=== PATIENT | male | born 1960 | race Caucasian/White ===

== ENCOUNTER 2021-06-21 15:07 | Emergency (ER) | payer OTHER, SELFPAY ==
[2021-06-21 16:20] LABS: Absolute Lymphocytes (CBC) 0.7 K/uL (0.7-4.9); Basophils % 0.7 % (0-1.3); Hematocrit 37.4 % (39.6-49.0); Lymphocytes % 9.9 % (15.3-44.8); MPV 7.2 fL (7.6-11.3); RBC Red Blood Cell Count 3.71 M/uL (4.33-5.43)
[2021-06-21 16:21] LABS: Protime INR 1.03
--- NOTE | 2021-06-21 16:39 | RAD REPORT ---
EXAM DESCRIPTION: CT - Head C Spine Siddhartha Edmondson - 06/21/2021 4:26 pm CLINICAL HISTORY: Trauma, head and neck injury. Chest, abdomen and pelvis pain. fall injury, syncope;Pain COMPARISON: No comparisons TECHNIQUE: CT head without contrast. CT cervical spine without contrast with coronal and sagittal reformatted images. CT chest, abdomen and pelvis with IV contrast (approximately 100 mL nonionic IV contrast) with ferraro l and sagittal reformatted images of the spine. All CT scans are performed using dose optimization technique as appropriate and may include automated exposure control or mA/KV adjustment according to patient size. FINDINGS: CT HEAD WITHOUT CONTRAST: No intracranial hemorrhage, hydrocephalus or extra-axial fluid collection. No areas of brain edema o r midline shift. The paranasal sinuses and mastoids are clear. The calvarium is intact. CT CERVICAL SPINE WITHOUT CONTRAST: No fracture or subluxation. The prevertebral soft tissues are normal in thickness.Multilevel cervica l spondylosis with varying degrees of neural foraminal narrowing. Mild central spinal stenosis is not ed at the C6-7 level. There is moderate neural foraminal narrowing at this level as well. CT CHEST, ABDOMEN, PELVIS WITH CONTRAST: The lungs are clear.No pneumothorax or pericardial/pleural fluid. Scattered coronary artery calcifica tions. No evidence of intra-abdominal visceral injury, free fluid or free air. Atherosclerosis Acute left tenth and eleventh posterior rib fractures which are only minimally displaced. There is andres bjacent chest wall hematoma. L3 through S1 fusion. Multilevel degenerative changes are present in the spine. Bone graft harvest site in the left iliac bone. IMPRESSION: 1. Left posterior tenth and eleventh rib fractures with small subjacent chest wall hemat reinaldo. No pneumothorax. 2. No acute intracranial abnormality. 3. No acute fracture of cervical spine. 4. No acute intra-abdominal abnormality.
[2021-06-21 17:03] LABS: ALT/SGPT 66 U/L (12-78); AST/SGOT 83 U/L (15-37); Alkaline Phosphatase 115 U/L (45-117); BUN Blood Urea Nitrogen 4 mg/dL (7-18); Bicarbonate 21 mmol/L (21-32); Bilirubin Direct 0.2 mg/dL (0-0.2); Bilirubin Total 0.5 mg/dL (0.2-1.0); Glucose Level 94 mg/dL (74-106); Magnesium 1.5 mg/dL (1.8-2.4); NT PRO-BNP 278 pg/mL (<125); Potassium 3.8 mmol/L (3.5-5.1); Sodium Level 129 mmol/L (136-145); Troponin (Emerg Dept Use Only) < 0.02 ng/mL (0.0-0.045)
--- NOTE | 2021-06-21 17:13 | RAD REPORT ---
EXAM DESCRIPTION: RAD - Chest Single View - 06/21/2021 4:44 pm CLINICAL HISTORY: syncope COMPARISON: No comparisons FINDINGS: Lines: None. Lungs: No evidence of edema or pneumonia. Pleural: No significant pleural effusions or pneumothorax. Cardiac: The heart size is within normal limits. Bones: No acute fractures. Other: IMPRESSION: No acute cardiopulmonary disease.
--- NOTE | 2021-06-21 17:13 | RAD REPORT ---
EXAM DESCRIPTION: RAD - Hand Left 3 View - 06/21/2021 4:44 pm CLINICAL HISTORY: PAIN COMPARISON: No comparisons FINDINGS: Comminuted fracture of the second digit proximal phalanx with intra-articular extension. T he fracture is centered primarily at the metaphysis however there is a longitudinal component which e xtends to the MCP joint. There is slight radial angulation Radiopaque foreign body within the dorsal soft tissues of the hand. This is at the level of the fourth metacarpal. Moderate degenerate changes are present at the base of the thumb. IMPRESSION: Comminuted fracture involving the proximal aspect of the second proximal phalanx with in tra-articular extension.
[2021-06-21] MEDS ORDERED: LIDOCAINE 1% W/EPI 1:100,000 MDV 20 ML VIAL ONE (17:14)
--- NOTE | 2021-06-21 17:38 | ER ---
Nurse's Notes [facility] Name: Steve Trent Age: 60 yrs Sex: Male : 1960 Arrival Date: 06/21/2021 Time: 15:08 Bed 14 Private MD: Diagnosis: Syncope;Displaced fracture of proximal phalanx of left index finger, initial encounter for closed fracture;Multiple fractures of ribs, left side;Laceration without foreign body of scalp;Hypomagnesemia;Hyponatremia Presentation: 06/21 15:20 Chief complaint: Patient states: i was working on a house and the last thing i remember tw2 was carrying a box of nails. and fell. i dont know what i hit or what happened. Coronavirus screen: At this time, the client does not indicate any symptoms associated with coronavirus-19. Ebola Screen: Patient denies travel to an Ebola-affected area in the 21 days before illness onset. Initial Sepsis Screen: Does the patient meet any 2 criteria? No. Patient's initial sepsis screen is negative. Does the patient have a suspected source of infection? No. Patient's initial sepsis screen is negative. Risk Assessment: Do you want to hurt yourself or someone else? Patient reports no desire to harm self or others. Onset of symptoms was June 21, 2021. 15:20 Method Of Arrival: Wheelchair 2 15:20 Acuity: TASH 3 tw2 16:14 Mechanism of Injury: Fall. [facility] 16:15 Care prior to arrival: None. [facility] 16:16 Trauma event details: Injury occurred: work Injury occurred: June 21, 2021. [facility] Triage Assessment: 15:18 General: Appears uncomfortable, Behavior is calm, cooperative, appropriate for age. tw2 Pain: Complains of pain in LEFT ribs, left eye. EENT: swelling noted to LEFT eye and laceration noted to left eye. 15:24 General: Appears unkempt, pt has multiple places of dried blood noted to left side of tw2 face and left arm. Historical: - Allergies: 15:18 No Known Allergies; tw2 - Home Meds: 15:18 None [Active]; tw2 - PMHx: 15:18 None; tw2 - PSHx: 15:18 back surgery; tw2 - Immunization history:: Adult Immunizations Client reports receiving the 2nd dose of the Covid vaccine, Last tetanus immunization: < 5 years ago. - Social history:: Smoking status: Patient reports the use of cigarette tobacco products, smokes one pack cigarettes per day. Patient uses alcohol, claims drinking about a 6 pack/day. - Immunization history: Last tetanus immunization: > 10 years ago unknown. Screenin:08 Abuse screen: Denies threats or abuse. Tuberculosis screening: No symptoms or risk [facility] factors identified. 16:14 Nutritional screening: No deficits noted. Fall Risk IV access (20 points). [facility] Primary Survey: 16:08 NO uncontrolled hemorrhage observed. A: The patient only responds to painful stimuli. [facility] Airway: patent. Breathing/Chest: Respiratory pattern: regular. Circulation: Cardiac rhythm: sinus rhythm. Disability Alert. Exposure/Environment: Obvious injury(ies) are noted at this time: abve left eye laceration multiple skin tears on arms and legs. 16:14 Reassessment Breathing/Chest Respiratory pattern Regular Circulation Heart rhythm Sinus [facility] rhythm. Secondary Survey: 16:08 HEENT: Head Other left eye lac. Gastrointestinal: No deficits noted. Abdomen is soft. kh : No deficits noted. Musculoskeletal: No deficits noted. Injury Description: Abrasion sustained to right arm, left arm, right leg and left leg. Assessment: 16:08 Reassessment: Patient appears in no apparent distress at this time. No changes from [facility] previously documented assessment. Patient and/or family updated on plan of care and expected duration. Pain level reassessed. Patient is alert, oriented x 3, equal unlabored respirations, skin warm/dry/pink. 16:08 General: Appears in no apparent distress. Behavior is calm, cooperative. Pain: [facility] Complains of pain in above left eye left side rib pain Pain does not radiate. Pain currently is 8 out of 10 on a pain scale. Quality of pain is described as. Vital Signs: 15:20 BP 101 / 57; Pulse 84; Resp 18; Temp 98.1(O); Pulse Ox 98% on R/A; Weight 86.18 kg (R); tw2 17:30 BP 110 / 63; Pulse 77; Resp 18; Temp 98.0(TE); Pulse Ox 99% on R/A; [facility] [place] Coma Score: 16:08 Eye Response: spontaneous(4). Verbal Response: oriented(5). Motor Response: obeys kh1 commands(6). Total: 15. Trauma Score (Adult): 16:08 Eye Response: spontaneous(1); Verbal Response: oriented(1); Motor Response: obeys kh1 commands(2); Systolic BP: > 89 mm Hg(4); Respiratory Rate: 10 to 29 per min(4); Hailey Score: 15; Trauma Score: 12 ED Course: 15:08 Patient arrived in ED. as 15:22 Triage completed. tw2 15:23 Arm band placed on. tw2 15:34 Buck Dan PA is PHCP. jr8 15:34 Constantine Oliveira MD is Attending Physician. jr8 15:42 Amanda Barnes is Primary Nurse. kh1 16:08 Patient has correct armband on for positive identification. Bed in low position. Call kh1 light in reach. Side rails up X2. Adult w/ patient. 16:08 Patient maintains SpO2 saturation greater than 95% on room air. kh1 16:13 Inserted saline lock: 20 gauge in left upper arm, using aseptic technique. Blood iw collected. 16:13 No provider procedures requiring assistance completed. kh1 16:26 CT Traumagram (Head C Spine CAP W Con) In Process Unspecified. EDMS 16:39 Basic Metabolic Panel Sent. kh1 16:39 LFT's Sent. kh1 16:39 Magnesium Sent. kh1 16:39 NT PRO-BNP Sent. kh1 16:40 Troponin (emerg Dept Use Only) Sent. kh1 16:44 XRAY Chest (1 view) In Process Unspecified. EDMS 16:44 XRAY Hand LEFT 3 View In Process Unspecified. EDMS 17:36 Armand Yun MD is Referral Physician. jr8 17:36 Fransisco Harris MD is Referral Physician. jr8 18:05 Orthoglass splint: Volar splint applied on left arm. em1 18:40 IV discontinued, intact, bleeding controlled, No redness/swelling at site. Pressure kh1 dressing applied. Administered Medications: No medications were administered Intake: 18:41 PO: 0ml; IV: 150ml (IV Fluid); Total: 150ml. kh1 Outcome: 17:38 Discharge ordered by . jr8 18:40 Discharged to home via wheelchair. kh1 18:40 Condition: stable 18:40 Discharge instructions given to patient. 18:41 Patient's length of stay was not longer than 2 hours. kh1 18:44 Patient left the ED. 1 Signatures: Dispatcher [employer] Fely Mercado Irene, RN Lorenzo Duncan Josh, PA PA jr8 Trinidad Crawford RN RN tw2 Amanda Barnes 1
--- NOTE | 2021-06-21 17:39 | EDPHYS ---
Physician Documentation [facility] Name: Steve Trent Age: 60 yrs Sex: Male : 1960 Arrival Date: 06/21/2021 Time: 15:08 Bed 14 Private MD: ED Physician Constantine Oliveira HPI: 06/21 16:05 This 60 yrs old Male presents to ER via Wheelchair with complaints of Fall jr8 Injury, Rib Pain, Laceration. 16:05 Onset: The symptoms/episode began/occurred acutely, today. This is a 60-year-old male jr8 patient that presented to the emergency room for further evaluation after having what appears to be a syncopal episode. Patient stated that he was carrying nails in a house and the next thing that he remembers he woke up on the floor and pain. Patient had obvious laceration to the left head with rib pain and another small superficial skin avulsions to his legs and arms. Patient denies ever having this happen in the past. Patient currently without any past medical history and denies any current medications. Patient denied any preceding symptoms. Currently complains of head pain, left-sided rib pain, left hand pain.. Historical: - Allergies: 15:18 No Known Allergies; tw2 - Home Meds: 15:18 None [Active]; tw2 - PMHx: 15:18 None; tw2 - PSHx: 15:18 back surgery; tw2 - Immunization history:: Adult Immunizations Client reports receiving the 2nd dose of the Covid vaccine, Last tetanus immunization: < 5 years ago. - Social history:: Smoking status: Patient reports the use of cigarette tobacco products, smokes one pack cigarettes per day. Patient uses alcohol, claims drinking about a 6 pack/day. - Immunization history: Last tetanus immunization: > 10 years ago unknown. ROS: 16:07 Eyes: Negative for injury, pain, redness, and discharge, ENT: Negative for injury, jr8 pain, and discharge, Neck: Negative for injury, pain, and swelling. 16:07 Respiratory: Negative for shortness of breath, cough, wheezing, and pleuritic chest pain, Abdomen/GI: Negative for abdominal pain, nausea, vomiting, diarrhea, and constipation, Back: Negative for injury and pain. 16:07 Cardiovascular: Positive for chest pain, with movement. 16:07 MS/extremity: Positive for pain, tenderness, of the left hand. 16:07 Skin: Positive for avulsion, laceration(s). 16:07 Neuro: Positive for syncope. Exam: 16:10 Eyes: Pupils equal round and reactive to light, extra-ocular motions intact. Lids and jr8 lashes normal. Conjunctiva and sclera are non-icteric and not injected. Cornea within normal limits. Periorbital areas with no swelling, redness, or edema. ENT: Nares patent. No nasal discharge, no septal abnormalities noted. Tympanic membranes are normal and external auditory canals are clear. Oropharynx with no redness, swelling, or masses, exudates, or evidence of obstruction, uvula midline. Mucous membranes moist. Neck: Trachea midline, no thyromegaly or masses palpated, and no cervical lymphadenopathy. Supple, full range of motion without nuchal rigidity, or vertebral point tenderness. No Meningismus. 16:10 Cardiovascular: Regular rate and rhythm with a normal S1 and S2. No gallops, murmurs, or rubs. Normal PMI, no JVD. No pulse deficits. Respiratory: Lungs have equal breath sounds bilaterally, clear to auscultation and percussion. No rales, rhonchi or wheezes noted. No increased work of breathing, no retractions or nasal flaring. Abdomen/GI: Soft, non-tender, with normal bowel sounds. No distension or tympany. No guarding or rebound. No evidence of tenderness throughout. Back: No spinal tenderness. No costovertebral tenderness. Full range of motion. Neuro: Awake and alert, GCS 15, oriented to person, place, time, and situation. Cranial nerves II-XII grossly intact. Motor strength 5/5 in all extremities. Sensory grossly intact. Cerebellar exam normal. 16:10 Head/face: Noted is a laceration(s), that is deep, 7.5 cm(s), of the Left side of forehead. 16:10 Chest/axilla: Inspection: normal, Palpation: tenderness, that is moderate, of the left lateral anterior chest and left lateral posterior chest. 16:10 Musculoskeletal/extremity: Extremities: grossly normal except: noted in the left hand: Patient has moderate tenderness to the second digit of the left hand. Mild swelling noted. No external trauma to that finger., ROM: intact in all extremities, full active range of motion, full passive range of motion, limited active range of motion due to pain, limited passive range of motion due to pain, Circulation is intact in all extremities. Sensation intact. 16:10 Skin: Various small superficial skin avulsions noted to the right foot and left arm that are new. Patient has other smaller older avulsions from previous work injuries to the left leg and right arm and hand. Vital Signs: 15:20 BP 101 / 57; Pulse 84; Resp 18; Temp 98.1(O); Pulse Ox 98% on R/A; Weight 86.18 kg (R); tw2 17:30 BP 110 / 63; Pulse 77; Resp 18; Temp 98.0(TE); Pulse Ox 99% on R/A; kh1 [place] Coma Score: 16:08 Eye Response: spontaneous(4). Verbal Response: oriented(5). Motor Response: obeys kh1 commands(6). Total: 15. Trauma Score (Adult): 16:08 Eye Response: spontaneous(1); Verbal Response: oriented(1); Motor Response: obeys kh1 commands(2); Systolic BP: > 89 mm Hg(4); Respiratory Rate: 10 to 29 per min(4); Hailey Score: 15; Trauma Score: 12 Procedures: 17:35 Splinting: Splint applied to left hand using Orthoglass splint, applied by tech. 8 Examined by me, post splint application: neurovascular intact, 2+ distal pulses palpable, brisk capillary refill noted, Patient tolerated well. Laceration: 17:10 Wound Repair of 7.5cm ( 3.0in ) subcutaneous laceration to left side of forehead. jr8 Irregularly shaped.. Skin/tissue flap noted.. Distal neuro/vascular/tendon intact. Anesthesia: Local anesthetic administered with 8 mls of 1% lidocaine w/ Epi. Wound prep: Extensive cleansing with betadine, Wound irrigation with saline, Wound explored extensively. Skin closed with 9 4-0 Prolene using interrupted sutures and sterile technique. Patient tolerated well. MDM: 15:34 Patient medically screened. jr8 17:34 Data reviewed: vital signs, nurses notes, lab test result(s), EKG, radiologic studies, jr8 CT scan, plain films. Data interpreted: Pulse oximetry: on room air is 98 %. Interpretation: normal. Counseling: I had a detailed discussion with the patient and/or guardian regarding: the historical points, exam findings, and any diagnostic results supporting the discharge/admit diagnosis, lab results, radiology results, the need for outpatient follow up, a problem manager, a family practitioner, a hand specialist, to return to the emergency department if symptoms worsen or persist or if there are any questions or concerns that arise at home. ED course: Patient is remained hemodynamically stable while in emergency room. Patient has left posterior 10th and 11th rib fractures and a left second digit finger fracture that he will follow up with and 4. Otherwise had mild electrolyte dysfunction which has been replaced. Patient stated that he does drink about 6 beers a night most nights of the week. This could be contributed to the hyponatremia and hypomagnesemia with slight AST ALT ratio. Recommended cessation of his drinking habits and to follow-up with cardiology to start with the syncope along with family medicine. Patient knows to come back if he were to worsen at any point in time. Otherwise patient and good with plan at this time.. 06/21 15:42 Order name: Basic Metabolic Panel; Complete Time: 17:12 06/21 15:42 Order name: CBC with Diff; Complete Time: 16:34 06/21 15:42 Order name: LFT's; Complete Time: 17:06/21 15:42 Order name: Magnesium; Complete Time: 17:06/21 15:42 Order name: NT PRO-BNP; Complete Time: 17:12 06/21 15:42 Order name: PT-INR; Complete Time: 16:34 06/21 15:42 Order name: Troponin (emerg Dept Use Only); Complete Time: 17:12 06/21 15:42 Order name: XRAY Chest (1 view); Complete Time: 17:26 06/21 15:42 Order name: EKG; Complete Time: 15:43 06/21 15:42 Order name: Cardiac monitoring; Complete Time: 16:40 06/21 15:42 Order name: CT Traumagram (Head C Spine CAP W Con); Complete Time: 16:41 06/21 16:07 Order name: XRAY Hand LEFT 3 View; Complete Time: 17:06/21 15:42 Order name: EKG - Nurse/Tech; Complete Time: 17:21 8 06/21 15:42 Order name: IV Saline Lock; Complete Time: 16:15 8 06/21 15:42 Order name: Labs collected and sent; Complete Time: 16:15 8 06/21 15:42 Order name: O2 Per Protocol; Complete Time: 16:15 8 06/21 15:42 Order name: O2 Sat Monitoring; Complete Time: 16:15 8 06/21 17:35 Order name: Volar Wrist Splint; Complete Time: 18:05 jr8 Administered Medications: No medications were administered Disposition: 06/22 07:05 Co-signature as Attending Physician, Constantine Oliveira MD I agree with the assessment and sp3 plan of care. Disposition Summary: 06/21/21 17:38 Discharge Ordered Location: Home jr Problem: new jr8 Symptoms: have improved jr8 Condition: Stable jr8 Diagnosis - Syncope jr8 - Displaced fracture of proximal phalanx of left index finger, initial encounter for jr8 closed fracture - Multiple fractures of ribs, left side jr8 - Laceration without foreign body of scalp jr8 - Hypomagnesemia jr8 - Hyponatremia jr8 Followup: jr8 - With: Armand Yun MD - When: 5 - 6 days - Reason: Followup: jr8 - With: Fransisco Harris MD - When: 5 - 6 days - Reason: Recheck today's complaints, Continuance of care, Re-evaluation by your physician Discharge Instructions: - Discharge Summary Sheet jr8 - Finger Fracture, Adult jr8 - Hypomagnesemia jr8 - Facial Laceration jr8 - Rib Fracture jr8 - Syncope jr8 Forms: - Medication Reconciliation Form jr8 - Thank You Letter jr8 - Antibiotic Education jr8 - Prescription Opioid Use jr8 Prescriptions: - Cephalexin 500 mg Oral Capsule - take 1 capsule by ORAL route every 8 hours for 7 days; 21 capsule; Refills: 0, jr8 Product Selection Permitted - Ibuprofen 800 mg Oral Tablet - take 1 tablet by ORAL route every 12 hours As needed take with food; 20 tablet; jr8 Refills: 0, Product Selection Permitted Signatures: Dispatcher [employer] EDVA Buck Dan PA PA jr8 Trinidad Crawford RN RN tw2 Constantine Oliveira MD MD sp3 Amanda Barnes 1 Corrections: (The following items were deleted from the chart) 06/21 17:12 16:10 Head/face: Noted is a laceration(s), that is deep, that is linear, 3.5 cm(s), of jr8 the Left side of forehead, jr8
[2021-06-21] MEDS ORDERED: Magnesium Sulfate 2gm IVPB 2 G/50 ML BAG IV ONE (18:03)
[2021-06-21] MEDS ORDERED: NA CHLORIDE 0.9% 1,000 ML ONE (18:03)
[2021-06-21 18:53] VITALS: BP 110/63; TEMP 98; O2SAT 99
== END 2021-06-21 18:44 | disposition home or self-care (01) ==
LOC: ER 15:07
PROC: 0PSVXZZ Reposition Left Finger Phalanx, External Approach (ICD-10-PCS; principal; 2021-06-21)
PROC: 0JQ10ZZ Repair Face Subcutaneous Tissue and Fascia, Open Approach (ICD-10-PCS; 2021-06-21)
DX: S22.42XA Multiple fractures of ribs, left side, initial encounter for closed fracture (principal); S62.611A Displaced fracture of proximal phalanx of left index finger, initial encounter for closed fracture; S01.01XA Laceration without foreign body of scalp, initial encounter; R55 Syncope and collapse; E83.42 Hypomagnesemia; E87.1 Hypo-osmolality and hyponatremia; F17.210 Nicotine dependence, cigarettes, uncomplicated; W18.39XA Other fall on same level, initial encounter; Y93.89 Activity, other specified; Y92.019 Unspecified place in single-family (private) house as the place of occurrence of the external cause
CPT/HCPCS: 36415; 70450; 71045; 71260; 72125; 74177; 80048; 80076; 82565; 83735; 83880; 84484; 85025; 85610; 93005; 99284; J3475; J7030; Q9967

== ENCOUNTER 2022-03-29 09:08 | Emergency (ER) | payer SELFPAY ==
[2022-03-29] MEDS ORDERED: MORPHINE 4 MG/ML SYR ONE ×3 (09:20→10:26)
[2022-03-29] MEDS ORDERED: NA CHLORIDE 0.9% 4,000 ML ONE (09:21)
[2022-03-29] MEDS ORDERED: CEFAZOLIN SODIUM 1 GM/VIAL ONE (09:33)
[2022-03-29] MEDS ORDERED: NA CHLORIDE 0.9% 50 ML ONE (09:34)
[2022-03-29] MEDS ORDERED: TETANUS & DIPHTHERIA TOX,ADULT 0.5 ML VIAL ONE (09:34)
[2022-03-29 09:43] LABS: Absolute Lymphocytes (CBC) 0.9 K/uL (0.7-4.9); Hematocrit 38.1 % (39.6-49.0); Lymphocytes % 15.3 % (15.3-44.8); MPV 6.8 fL (7.6-11.3); RBC Red Blood Cell Count 3.94 M/uL (4.33-5.43)
--- NOTE | 2022-03-29 09:50 | ER ---
Nurse's Notes [facility] Name: Steve Trent Age: 61 yrs Sex: Male : 1960 Arrival Date: 03/29/2022 Time: 09:12 Bed 4 Private MD: Diagnosis: Open Calcaneal fracture Presentation: 03/29 09:10 Chief complaint: EMS states: pt fell approx 12-15 feet in elevator , christopher open ankle iw fractures noted , pt alert and oriented , bleeding to christopher ankles, dressing in place, Dr. Kaur at bedside for assessment. 09:14 Acuity: TASH 2 iw 09:14 Method Of Arrival: EMS: [facility] iw 09:15 Mechanism of Injury: Fall approximately 12 feet. Trauma event details: Injury occurred iw in the [facility], Injury occurred: Injury occurred: March 29, 2022. 09:16 Care prior to arrival: Injury dressed. iw 09:17 Coronavirus screen: At this time, the client does not indicate any symptoms associated iw with coronavirus-19. Ebola Screen: Patient negative for fever greater than or equal to 101.5 degrees Fahrenheit, and additional compatible Ebola Virus Disease symptoms Patient denies exposure to infectious person. Patient denies travel to an Ebola-affected area in the 21 days before illness onset. No symptoms or risks identified at this time. Initial Sepsis Screen: Does the patient meet any 2 criteria? No. Patient's initial sepsis screen is negative. Does the patient have a suspected source of infection? No. Patient's initial sepsis screen is negative. Risk Assessment: Do you want to hurt yourself or someone else? Patient reports no desire to harm self or others. Onset of symptoms was March 29, 2022. Trauma Activation: Alert Physician: ED Physician; Name: Dr. Kaur; Notified At: 09:05; Arrived At: 09:05 Physician: General Surgeon; Name: N/A; Notified At: 09:05; Arrived At: N/A Physician: Radiology; Name: [place]; Notified At: 09:05; Arrived At: 09:05 Physician: Respiratory; Name: N/A; Notified At: 09:05; Arrived At: N/A Physician: Buddy; Name: N/A; Notified At: 09:05; Arrived At: N/A Historical: - Allergies: 09:17 No Known Allergies; iw - Home Meds: 09:17 None [Active]; iw - PMHx: 09:17 None; iw - PSHx: 09:17 back surgery; iw - Immunization history:: Last tetanus immunization: unknown. - Social history:: Smoking status: Patient reports the use of cigarette tobacco products, Patient uses alcohol, 2 beers today watching the sun rise. - Immunization history: Last tetanus immunization: - up to date. - Family history:: not pertinent. Screenin:20 Abuse screen: Denies threats or abuse. Denies injuries from another. Tuberculosis iw screening: No symptoms or risk factors identified. 09:22 Nutritional screening: No deficits noted. Fall Risk IV access (20 points). jl7 Primary Survey: 09:10 NO uncontrolled hemorrhage observed. A: The client is alert. Airway: patent. iw Breathing/Chest: Respiratory effort: spontaneous, Breath sounds: clear. Circulation: Skin color: pink, Skin temperature: warm. Disability Client is alert. Exposure/Environment: All clothing and personal items were removed. 09:48 Reassessment Alertness and Airway: Awake and alert. The airway is patent. Breathing: jl7 Spontaneous respiratory effort, equal unlabored respirations, breath sounds clear bilaterally, regular pattern with symmetrical chest rise and fall. Circulation: No external hemorrhage noted. Regular and strong central pulse, skin warm/dry/normal color. Disability: Alert. Secondary Survey: 09:53 Musculoskeletal: Bony deformity noted of medial aspect of right heel and medial aspect jl7 of left heel. Assessment: 09:22 Reassessment: Pt to CT via stretcher. jl7 09:26 General: Appears uncomfortable, well groomed, well nourished, Behavior is cooperative, jh6 Smells of alcohol. Pain: Complains of pain in right leg, left lateral ankle, lateral aspect of left foot, left Achilles, left heel, left medial ankle, medial aspect of left foot, left knee, anterior aspect of left ankle and dorsum of left foot Pain radiates to back of neck, posterior chest, buttocks and back Pain currently is 9 out of 10 on a pain scale. Quality of pain is described as aching, sharp, shooting, throbbing, gnawing, numb, Pain began suddenly, Is continuous, Aggravated by increased activity, repositioning. Neuro: No deficits noted. Level of Consciousness is awake, alert, obeys commands, Oriented to person, place, time, situation, [employer] are equal bilaterally Full function in left in right arm(s) Speech is normal, Denies blurred vision. EENT: No deficits noted. Cardiovascular: No deficits noted. Capillary refill < 3 seconds JVD is absent Patient's skin is warm and dry. Rhythm is sinus rhythm. Respiratory: No deficits noted. Airway is patent Trachea midline Respiratory effort is even, unlabored, Respiratory pattern is regular, Breath sounds are clear bilaterally. GI: No deficits noted. Abdomen is flat, non-distended, Last meal was March 29, 2022. Bowel sounds present X 4 quads. Abd is soft and non tender X 4 quads. : No deficits noted. Derm: Wound noted left lateral ankle, lateral aspect of left foot, left Achilles, left heel, left medial ankle, medial aspect of left foot, anterior aspect of left ankle and dorsum of left foot Wound is open distal tib/fib fx of l leg with swelling to rt heal and ankle Bruising that is on left lateral ankle, lateral aspect of left foot, left Achilles, left heel, left medial ankle, medial aspect of left foot, anterior aspect of left ankle and dorsum of left foot. Musculoskeletal: Capillary refill is > 3 seconds, in left foot. Injury Description: Crush injury sustained to left lateral ankle, left Achilles, left medial ankle and anterior aspect of left ankle is macerated Deformity sustained to right leg, left lateral ankle, left Achilles, left medial ankle and anterior aspect of left ankle Laceration sustained to left lateral ankle, left Achilles, left medial ankle and anterior aspect of left ankle Puncture. 09:51 General: Appears in no apparent distress. uncomfortable, Behavior is calm, cooperative, jl7 appropriate for age. Pain: Complains of pain in right foot and left foot. Neuro: Level of Consciousness is awake, alert, obeys commands, Oriented to person, place, time, situation, Intact. Cardiovascular: Patient's skin is warm and dry. Cardiovascular: Denies chest pain. Respiratory: Airway is patent Respiratory effort is even, unlabored, Respiratory pattern is regular, symmetrical, Denies shortness of breath. GI: Patient currently denies abdominal pain, diarrhea, nausea, vomiting. Derm: Skin is pink, warm \T\ dry. 10:08 Reassessment: Patient is alert, oriented x 3, equal unlabored respirations, skin jl7 warm/dry/pink. Report called to receiving facility, at bedside, awaiting EMS transport. Vital Signs: 09:10 BP 160 / 93; Pulse 69; Resp 19; Temp 97.0; Pulse Ox 99% on R/A; iw 09:23 BP 168 / 89; Pulse 71; Resp 16; Temp 98.0; Pulse Ox 100% on R/A; iw 09:49 BP 160 / 73; Pulse 72; Resp 15; Pulse Ox 99% ; Weight 86.18 kg; Height 5 ft. 10 in. jl7 (177.80 cm); 10:31 BP 156 / 76; Pulse 79; Resp 16; Pulse Ox 99% ; Pain 7/10; jh6 09:49 Body Mass Index 27.26 (86.18 kg, 177.80 cm) jl7 [place] Coma Score: 09:10 Eye Response: spontaneous(4). Verbal Response: oriented(5). Motor Response: obeys iw commands(6). Total: 15. 09:49 Eye Response: spontaneous(4). Verbal Response: oriented(5). Motor Response: obeys jl7 commands(6). Total: 15. Trauma Score (Adult): 09:10 Eye Response: spontaneous(1); Verbal Response: oriented(1); Motor Response: obeys iw commands(2); Systolic BP: > 89 mm Hg(4); Respiratory Rate: 10 to 29 per min(4); [place] Score: 15; Trauma Score: 12 09:23 Eye Response: spontaneous(1); Verbal Response: oriented(1); Motor Response: obeys iw commands(2); Systolic BP: > 89 mm Hg(4); Respiratory Rate: 10 to 29 per min(4); [place] Score: 15; Trauma Score: 12 ED Course: 09:10 Inserted saline lock: 20 gauge in right forearm, using aseptic technique. Blood jl7 collected. 09:10 Inserted saline lock: 18 gauge in left hand, using aseptic technique. jh6 09:12 Patient arrived in ED. ms3 09:12 Gonzales Kaur DO is Attending Physician. ms3 09:14 Triage completed. iw 09:15 Patient maintains SpO2 saturation greater than 95% on room air. Thermoregulation: warm jl7 blanket given to patient. 09:15 Initial lab(s) drawn, by ED staff, sent to lab. T\T\S collected, blood band applied to jl7 patient. 09:18 Arm band placed on. iw 09:22 Patient has correct armband on for positive identification. Client placed on continuous jl7 cardiac and pulse oximetry monitoring. NIBP monitoring applied. Warm blanket given. 09:33 CT Traumagram (Head C Spine CAP W Con) In Process Unspecified. EDMS 09:34 Bj Garza, AISHA is Primary Nurse. jl7 09:53 Dressings: 4X4s X 4; right foot and left foot. Irrigation of bilateral heel/ankle open jl7 fractures irrigated with normal saline Patient tolerated well. 09:55 Ankle Left 3 View XRAY In Process Unspecified. EDMS 09:55 Ankle Right 3 View XRAY In Process Unspecified. EDMS 10:02 Orthoglass splint: Posterior short lleg splint applied on bilateral legs. jl7 10:08 No provider procedures requiring assistance completed. Patient transferred, IV remains jl7 in place. intact, No redness/swelling at site. Administered Medications: 09:20 Drug: morphine 4 mg Route: IVP; Infused Over: 4 mins; Site: right forearm; jl7 10:33 Follow up: Response: No adverse reaction; Pain is unchanged, physician notified [facility] 09:47 Not Given (tetanus up tp datee): ADAcel 0.5 ml IM once; indicated for adults and jl7 teenagers 11 to 64 years of age 09:57 Drug: morphine 4 mg Route: IVP; Infused Over: 4 mins; Site: left hand; jl7 10:32 Follow up: Response: No adverse reaction; Pain is unchanged, physician notified [facility] 09:58 Drug: Ancef (cefazolin) 1 grams Route: IVPB; Site: right forearm; jl7 10:28 Follow up: IV Status: Completed infusion jh6 10:25 Drug: morphine 4 mg Route: IVP; Infused Over: 4 mins; Site: left hand; 6 10:33 Follow up: Response: Pain is unchanged, physician notified 6 Medication: 09:57 VIS not applicable for this client. jl7 Outcome: 09:50 ER care complete, transfer ordered by ms3 10:30 Transferred by ground EMS to other acute care facility: [facility]. 6 10:30 Condition: stable 10:30 Instructed on the need for transfer. 10:45 Patient left the ED. jh6 Signatures: Dispatcher [employer] EDLeydi Gutierrez RN RN Bj Garza RN RN jl7 Gonzales Kaur DO DO ms3 Ivania Miramontes, RN RN 6 Corrections: (The following items were deleted from the chart) 09:15 09:14 Acuity: TASH 3 [facility] 09:16 09:15 Trauma Activation: Alert [facility] 09:48 09:47 Immunization history Last tetanus immunization: jl7 7 09:59 09:10 Inserted saline lock: 20 gauge in right antecubital area, using aseptic jl7 technique. Blood collected. jh
--- NOTE | 2022-03-29 09:50 | EDPHYS ---
Physician Documentation [facility] Name: Steve Trent Age: 61 yrs Sex: Male : 1960 Arrival Date: 03/29/2022 Time: 09:12 Bed 4 Private MD: ED Physician Gonzales Kaur HPI: 03/29 09:27 This 61 yrs old Male presents to ER via EMS with complaints of Fall Injury. ms3 09:27 Details of fall: The patient fell from a height, Elevator broke loose falling ms3 approximately 12 feet. Onset: The symptoms/episode began/occurred acutely, just prior to arrival. Associated injuries: The patient sustained left ankle, laceration, obvious fracture, painful injury, swelling, right foot, laceration, obvious fracture, painful injury, swelling. Severity of symptoms: At their worst the symptoms were severe, in the emergency department the symptoms are unchanged. Historical: - Allergies: 09:17 No Known Allergies; iw - Home Meds: 09:17 None [Active]; iw - PMHx: 09:17 None; iw - PSHx: 09:17 back surgery; iw - Immunization history:: Last tetanus immunization: unknown. - Social history:: Smoking status: Patient reports the use of cigarette tobacco products, Patient uses alcohol, 2 beers today watching the sun rise. - Immunization history: Last tetanus immunization: - up to date. - Family history:: not pertinent. ROS: 09:27 Constitutional: Negative for fever, and chills. Neck: Negative for injury, pain, and ms3 swelling, Cardiovascular: Negative for chest pain, and palpitations. Respiratory: Negative for shortness of breath, cough, wheezing, and pleuritic chest pain, Abdomen/GI: Negative for abdominal pain, nausea, vomiting, diarrhea, and constipation, Back: back pain Psych: Negative for depression, anxiety, suicide ideation, homicidal ideation, and hallucinations. 09:27 All other systems are negative. Exam: 09:27 Constitutional: This is a well developed, well nourished patient who is awake, alert, ms3 and in no acute distress. Head/Face: Normocephalic, atraumatic. Neck: Trachea midline, no cervical lymphadenopathy. Supple, full range of motion without nuchal rigidity, or vertebral point tenderness. No Meningismus. Cardiovascular: Regular rate and rhythm with a normal S1 and S2. No gallops, murmurs, or rubs. Normal PMI, no JVD. No pulse deficits. Respiratory: Lungs have equal breath sounds bilaterally, clear to auscultation and percussion. No rales, rhonchi or wheezes noted. No increased work of breathing, no retractions or nasal flaring. Abdomen/GI: Soft, non-tender, with normal bowel sounds. No distension or tympany. No guarding or rebound. No evidence of tenderness throughout. Back: No spinal tenderness. No costovertebral tenderness. Skin: lacerations of bilateral ankles (open fx), abrasions of bilateral elbows Vital Signs: 09:10 BP 160 / 93; Pulse 69; Resp 19; Temp 97.0; Pulse Ox 99% on R/A; iw 09:23 BP 168 / 89; Pulse 71; Resp 16; Temp 98.0; Pulse Ox 100% on R/A; iw 09:49 BP 160 / 73; Pulse 72; Resp 15; Pulse Ox 99% ; Weight 86.18 kg; Height 5 ft. 10 in. jl7 (177.80 cm); 10:31 BP 156 / 76; Pulse 79; Resp 16; Pulse Ox 99% ; Pain 7/10; jh6 09:49 Body Mass Index 27.26 (86.18 kg, 177.80 cm) jl7 [place] Coma Score: 09:10 Eye Response: spontaneous(4). Verbal Response: oriented(5). Motor Response: obeys iw commands(6). Total: 15. 09:49 Eye Response: spontaneous(4). Verbal Response: oriented(5). Motor Response: obeys jl7 commands(6). Total: 15. Trauma Score (Adult): 09:10 Eye Response: spontaneous(1); Verbal Response: oriented(1); Motor Response: obeys iw commands(2); Systolic BP: > 89 mm Hg(4); Respiratory Rate: 10 to 29 per min(4); Hailey Score: 15; Trauma Score: 12 09:23 Eye Response: spontaneous(1); Verbal Response: oriented(1); Motor Response: obeys iw commands(2); Systolic BP: > 89 mm Hg(4); Respiratory Rate: 10 to 29 per min(4); [place] Score: 15; Trauma Score: 12 MDM: 09:12 Patient medically screened. ms3 09:19 ED course: Discussed case with lillie Hernández, recommends transfer.. ms3 09:27 Differential diagnosis: abrasion, closed head injury, contusion, fracture, laceration, ms3 multiple trauma, sprain, strain. 09:57 Data reviewed: vital signs, nurses notes, lab test result(s), radiologic studies, CT ms3 scan, plain films. Test interpretation: by ED physician or midlevel provider: plain radiologic studies. ED course: Discussed case with Dr Pennington and she accepts patient to the Emergency Department.. 03/29 09:14 Order name: Basic Metabolic Panel; Complete Time: 09:55 ms3 03/29 09:14 Order name: CBC with Diff; Complete Time: 09:50 ms3 03/29 09:14 Order name: Type And Screen ms3 03/29 09:14 Order name: CT Traumagram (Head C Spine CAP W Con); Complete Time: 09:55 ms3 03/29 09:14 Order name: Ankle Left 3 View XRAY; Complete Time: 10:31 ms3 03/29 09:22 Order name: SARS-COV-2 RT PCR (Document "Date of Onset" if Symptomatic) iw 03/29 09:14 Order name: Ankle Right 3 View XRAY; Complete Time: 10:31 ms3 03/29 09:14 Order name: Labs collected and sent; Complete Time: 09:31 ms3 Administered Medications: 09:20 Drug: morphine 4 mg Route: IVP; Infused Over: 4 mins; Site: right forearm; jl7 10:33 Follow up: Response: No adverse reaction; Pain is unchanged, physician notified [facility] 09:47 Not Given (tetanus up tp datee): ADAcel 0.5 ml IM once; indicated for adults and jl7 teenagers 11 to 64 years of age 09:57 Drug: morphine 4 mg Route: IVP; Infused Over: 4 mins; Site: left hand; jl7 10:32 Follow up: Response: No adverse reaction; Pain is unchanged, physician notified 6 09:58 Drug: Ancef (cefazolin) 1 grams Route: IVPB; Site: right forearm; jl7 10:28 Follow up: IV Status: Completed infusion [facility] 10:25 Drug: morphine 4 mg Route: IVP; Infused Over: 4 mins; Site: left hand; [facility] 10:33 Follow up: Response: Pain is unchanged, physician notified 6 Disposition Summary: 03/29/22 09:50 Transfer Ordered Transfer Location: [facility] ms3 Reason: Higher level of care ms3 Condition: Stable ms3 Problem: new ms3 Symptoms: are unchanged ms3 Accepting Physician: .(03/29/22 10:45) [facility] Diagnosis - Open Calcaneal fracture ms3 Forms: - Medication Reconciliation Form ms3 - SBAR form ms3 Signatures: Dispatcher [employer] EDMS Leydi Patrick, RN RN iw Bj Garza RN RN jl7 Gonzales Kaur DO DO ms3 Ivania Miramontes, RN RN jh6 Corrections: (The following items were deleted from the chart) 09:48 09:47 Immunization history Last tetanus immunization: jl7 jl7 10:31 09:15 Elbow Left 3 View+RAD.RAD.BRZ ordered. EDMS EDMS 10:31 09:15 Elbow Right 3 View+RAD.RAD.BRZ ordered. EDMS EDMS 10:45 09:50 . ms3 [facility]
--- NOTE | 2022-03-29 09:53 | RAD REPORT ---
EXAM DESCRIPTION: CT - Head C Spine Cap W Con - 03/29/2022 9:31 am CLINICAL HISTORY: Trauma, head and neck injury. Chest, abdomen and pelvis pain. Fall COMPARISON: Head C Spine Cap W Con dated 06/21/2021 TECHNIQUE: CT head without contrast. CT cervical spine without contrast with coronal and sagittal reformatted images. CT chest, abdomen and pelvis with IV contrast (approximately 100 mL nonionic IV contrast) with ferraro l and sagittal reformatted images of the spine. All CT scans are performed using dose optimization technique as appropriate and may include automated exposure control or mA/KV adjustment according to patient size. FINDINGS: CT HEAD WITHOUT CONTRAST: No intracranial hemorrhage, hydrocephalus or extra-axial fluid collection. Mild generalized brain atr ophy. No areas of brain edema or midline shift. Mild left mastoid effusion. The paranasal sinuses are essentially clear. The calvarium is intact. CT CERVICAL SPINE WITHOUT CONTRAST: No fracture or subluxation. Mild lower cervical degenerative changes. The prevertebral soft tissues a re normal in thickness. CT CHEST, ABDOMEN, PELVIS WITH CONTRAST: The lungs are clear.No pneumothorax or pericardial/pleural fluid. No evidence of intra-abdominal visceral injury, free fluid or free air. Postsurgical hardware is in place lumbar spine. No acute fracture is evident. IMPRESSION: Negative for acute traumatic findings.
--- NOTE | 2022-03-29 10:07 | RAD REPORT ---
EXAM DESCRIPTION: RAD - Ankle Left 3 View - 03/29/2022 9:53 am CLINICAL HISTORY: PAIN COMPARISON: No comparisons FINDINGS: Significant flattening of the talus and calcaneus likely related to fracture. Subtalar dis location is also present.
--- NOTE | 2022-03-29 10:08 | RAD REPORT ---
EXAM DESCRIPTION: RAD - Ankle Right 3 View - 03/29/2022 9:53 am CLINICAL HISTORY: PAIN COMPARISON: <Comparisons> FINDINGS: Severe comminuted central compression fracture of the calcaneus. Large bone fragment also present adjacent to the lateral malleolus. Subtalar dislocation is not seen.
[2022-03-29 11:03] VITALS: TEMP 98
[2022-03-29 11:05] VITALS: O2SAT 99
[2022-03-29 11:06] VITALS: BP 156/76
== END 2022-03-29 10:45 | disposition short-term general hospital (02) ==
LOC: ER 09:08
DX: S92.002B Unspecified fracture of left calcaneus, initial encounter for open fracture (principal); Z72.0 Tobacco use
CPT/HCPCS: 36415; 70450; 71260; 72125; 74177; 80048; 85025; 86850; 86900; 86901; 90714; 99285; J0690; J7030; Q9967; U0003

== ENCOUNTER → 2023-12-03 | Emergency (ER) | payer SELFPAY ==
--- NOTE | 2023-12-03 09:56 | RAD REPORT ---
EXAM DESCRIPTION: RAD - Shoulder Right 2 View - 12/03/2023 9:44 am CLINICAL HISTORY: PAIN COMPARISON: No comparisons FINDINGS: Mildly displaced fracture of the greater tuberosity is noted. No dislocation. [id number] rate AC joint and glenohumeral joint arthritic changes
--- NOTE | 2023-12-03 10:25 | ER ---
Nurse's Notes [facility] Name: Steve Trent Age: 63 yrs Sex: Male : 1960 Arrival Date: 12/03/2023 Time: 08:44 Bed 15 Private MD: Macy BREWER Diagnosis: Fracture of greater tuberosity right shoulder Presentation: 12/03 08:50 Chief complaint: Patient states: FELL YESTERDAY, TRIPPED AND FELL LANDED ON RIGHT ARM db AND SHOULDER. COMPLAINS OF SHOULDER PAIN. Coronavirus screen: Vaccine status: Patient reports receiving the 2nd dose of the covid vaccine. Client denies travel out of the [place] in the last 14 days. At this time, the client does not indicate any symptoms associated with coronavirus-19. Ebola Screen: Patient negative for fever greater than or equal to 101.5 degrees Fahrenheit, and additional compatible Ebola Virus Disease symptoms Patient denies exposure to infectious person. Patient denies travel to an Ebola-affected area in the 21 days before illness onset. No symptoms or risks identified at this time. Initial Sepsis Screen: Does the patient meet any 2 criteria? No. Patient's initial sepsis screen is negative. Does the patient have a suspected source of infection? No. Patient's initial sepsis screen is negative. Risk Assessment: Do you want to hurt yourself or someone else? Patient reports no desire to harm self or others. Onset of symptoms was December 02, 2023. 08:50 Method Of Arrival: Ambulatory db 08:50 Acuity: TASH 3 db Triage Assessment: 09:02 General: Appears in no apparent distress. uncomfortable, Behavior is calm, cooperative. db Pain: Complains of pain in right arm. Neuro: Level of Consciousness is awake, alert, obeys commands, Oriented to person, place, time, situation, Speech is normal. Musculoskeletal: Reports pain in right arm. Injury Description: Bruise sustained to right arm. Historical: - Allergies: 09:02 No Known Allergies; db - PSHx: 09:02 back surgery; db - Immunization history:: Adult Immunizations unknown. - Social history:: Smoking status: Patient reports the use of cigarette tobacco products, smokes one pack cigarettes per day. Screenin:48 [facility] ED Fall Risk Assessment (Adult) History of falling in the last 3 months, db including since admission Yes- single mechanical fall (1 pt) Confusion or Disorientation No (0 pts) Intoxicated or Sedated No (0 pts) Impaired Gait No (0 pts) Mobility Assist Device Used No (0 pt) Altered Elimination No (0 pt) Score/Fall Risk Level 0 - 2 = Low Risk Oriented to surroundings, Maintained a safe environment. Abuse screen: Denies threats or abuse. Denies injuries from another. Nutritional screening: No deficits noted. Tuberculosis screening: No symptoms or risk factors identified. Assessment: 09:04 Reassessment: Patient appears in no apparent distress at this time. Patient and/or db family updated on plan of care and expected duration. Pain level reassessed. Patient is alert, oriented x 3, equal unlabored respirations, skin warm/dry/pink. SEE TRIAGE FOR INITIAL ASSESSMENT. General: Appears in no apparent distress. comfortable, Behavior is calm, cooperative. Musculoskeletal: Circulation, motion, and sensation intact. Capillary refill < 3 seconds, Range of motion: limited in right shoulder and right elbow. Vital Signs: 08:50 BP 160 / 85; Pulse 73; Resp 18; Temp 97.7(O); Pulse Ox 100% ; Pain 8/10; db 09:30 BP 137 / 72; Pulse 64; Resp 18; Pulse Ox 100% on R/A; db 10:44 BP 129 / 85; Pulse 75; Resp 18; Pulse Ox 100% ; cp4 08:50 Pain Scale: Adult db ED Course: 08:48 Patient arrived in ED. mr 08:49 DANIELLATrentramirez Lynchh is Private Physician. mr 08:58 Anant Darnell MD is Attending Physician. rt 09:00 Erika Rico, AISHA is Primary Nurse. db 09:02 Triage completed. db 09:02 Arm band placed on left wrist. Patient placed in an exam room. db 09:46 Shoulder Right (2 View) XRAY In Process Unspecified. EDMS 09:48 Patient has correct armband on for positive identification. Bed in low position. Call db light in reach. Side rails up X 1. 10:46 Provided Education on: humerus fracture. cp4 10:46 No provider procedures requiring assistance completed. Patient did not have IV access cp4 during this emergency room visit. Administered Medications: 09:42 Drug: morphine IM 4 mg IM once Route: IM; Site: left deltoid; db 10:46 Follow up: Response: No adverse reaction cp4 Medication: 10:46 VIS not applicable for this client. cp4 Outcome: 10:24 Discharge ordered by . rt 10:46 Discharged to home ambulatory, cp4 10:46 Condition: stable 10:46 Discharge instructions given to patient, Instructed on discharge instructions, follow up and referral plans. medication usage, Demonstrated understanding of instructions, follow-up care, medications, Prescriptions given X 1, 10:47 Patient left the ED. cp4 Signatures: Dispatcher [employer] EDMS Rina Ludn, Reg Reg mr Erika Rico, RN RN db Anant Darnell MD MD rt Nichole Pennington cp4
--- NOTE | 2023-12-03 10:25 | EDPHYS ---
Physician Documentation [facility] Name: Steve Trent Age: 63 yrs Sex: Male : 1960 Arrival Date: 12/03/2023 Time: 08:44 Bed 15 Private MD: Macy BREWER ED Physician Anant Darnell HPI: 12/03 09:06 This 63 yrs old Male presents to ER via Ambulatory with complaints of Arm Injury. rt 09:06 Patient presents to the ED with injury to the right shoulder. Patient notes the last, rt landing onto his right shoulder. Denies head trauma. Denies loss of consciousness. Patient last oral intake was at midnight. Patient states that it was swollen, feels deformed. Pain is aching in nature, nonradiating, no other aggravating relieving factors.. Historical: - Allergies: 09:02 No Known Allergies; db - PSHx: 09:02 back surgery; db - Immunization history:: Adult Immunizations unknown. - Social history:: Smoking status: Patient reports the use of cigarette tobacco products, smokes one pack cigarettes per day. ROS: 09:17 Constitutional: Negative for fever, chills, and weight loss, Cardiovascular: Negative rt for chest pain, palpitations, and edema, Respiratory: Negative for shortness of breath, cough, wheezing, and pleuritic chest pain, Abdomen/GI: Negative for abdominal pain, nausea, vomiting, diarrhea, and constipation, Skin: Negative for injury, rash, and discoloration, Neuro: Negative for headache, weakness, numbness, tingling, and seizure, Psych: Negative for depression, anxiety, suicide ideation, homicidal ideation, and hallucinations, 09:17 MS/extremity: Positive for injury or acute deformity, pain, Exam: 09:17 Constitutional: This is a well developed, well nourished patient who is awake, alert, rt and in no acute distress. Head/Face: Normocephalic, atraumatic. Chest/axilla: Normal chest wall appearance and motion. Nontender with no deformity. No lesions are appreciated. Cardiovascular: Regular rate and rhythm with a normal S1 and S2. No gallops, murmurs, or rubs. Normal PMI, no JVD. No pulse deficits. Respiratory: Lungs have equal breath sounds bilaterally, clear to auscultation and percussion. No rales, rhonchi or wheezes noted. No increased work of breathing, no retractions or nasal flaring. Abdomen/GI: Soft, non-tender, with normal bowel sounds. No distension or tympany. No guarding or rebound. No evidence of tenderness throughout. Skin: Warm, dry with normal turgor. Normal color with no rashes, no lesions, and no evidence of cellulitis. Neuro: Awake and alert, GCS 15, oriented to person, place, time, and situation. Cranial nerves II-XII grossly intact. Motor strength 5/5 in all extremities. Sensory grossly intact. Cerebellar exam normal. Normal gait. Psych: Awake, alert, with orientation to person, place and time. Behavior, mood, and affect are within normal limits. 09:17 Neck: No posterior cervical midline tenderness, 09:17 Abdomen/GI: Swelling, deformity noted to the right shoulder, tenderness at that region. Pulses, motor, sensation intact, no other tenderness to the arm, Vital Signs: 08:50 BP 160 / 85; Pulse 73; Resp 18; Temp 97.7(O); Pulse Ox 100% ; Pain 8/10; db 09:30 BP 137 / 72; Pulse 64; Resp 18; Pulse Ox 100% on R/A; db 10:44 BP 129 / 85; Pulse 75; Resp 18; Pulse Ox 100% ; cp4 08:50 Pain Scale: Adult db MDM: 08:59 Patient medically screened. rt 10:45 Differential diagnosis: Fracture, dislocation, contusion. Data reviewed: vital signs, rt nurses notes, radiologic studies. I considered the following discharge prescriptions or medication management in the emergency department Medications were administered in the Emergency Department. See MAR. Independent interpretation of the following test(s) in the Emergency Department X-Ray: My interpretation is No dislocation seen on interpretation of x-ray images. Test considered but Not performed: CT: Denies head trauma, CT scan of the head no indicated. Counseling: I had a detailed discussion with the patient and/or guardian regarding the historical points, exam findings, and any diagnostic results supporting the discharge/admit diagnosis, radiology results, the need for outpatient follow up, to return to the emergency department if symptoms worsen or persist or if there are any questions or concerns that arise at home. Response to treatment: the patient's symptoms have markedly improved after treatment. 12/03 09:04 Order name: Shoulder Right (2 View) XRAY; Complete Time: 09:59 rt 12/03 10:23 Order name: Shoulder Immobilizer; Complete Time: 10:35 rt Administered Medications: 09:42 Drug: morphine IM 4 mg IM once Route: IM; Site: left deltoid; db 10:46 Follow up: Response: No adverse reaction cp4 Disposition Summary: 12/03/23 10:24 Discharge Ordered Notes: Location: Home rt Problem: new rt Symptoms: have improved rt Condition: Stable rt Diagnosis - Fracture of greater tuberosity right shoulder rt Followup: rt - With: Private Physician - When: 2 - 3 days - Reason: Discharge Instructions: - Discharge Summary Sheet rt - Humerus Fracture Treated With Immobilization rt Forms: - Medication Reconciliation Form rt - Thank You Letter rt - Antibiotic Education rt - Prescription Opioid Use rt - Patient Portal Instructions rt - Leadership Thank You Letter rt Prescriptions: - acetaminophen-codeine 300-30 mg Oral tablet - take 1 tablet ORAL route every 6 hours as needed for pain; 21 tablet; Refills: rt 0, Product Selection Permitted Signatures: Dispatcher [employer] Erika Wise, RN RN db Anant Darnell MD MD rt Nichole Pennington cp4
[2023-12-03 11:14] VITALS: BP 129/85; TEMP 97.7; O2SAT 100
== END ==
LOC: ER 08:44
DX: S42.91XA Fracture of right shoulder girdle, part unspecified, initial encounter for closed fracture (principal); F17.210 Nicotine dependence, cigarettes, uncomplicated